=== PATIENT | female | born 1990 | race African-American/Black ===

== ENCOUNTER 2019-08-26 07:56 | Emergency (ER) | payer SELFPAY ==
[~2019-08-26] VITALS: Ht 162.6 cm; Wt 91.0 kg
[2019-08-26] MEDS ORDERED: TETANUS, DIPHTHERIA, PERTUSSIS VAC/PF 0.5ML (>7YR OLD) IM ONE (08:45)
[2019-08-26] MEDS ORDERED: LIDOCAINE HCL/PF 1% 10 MG/ML 5ML VIAL IJ ONE (08:45)
[2019-08-26] MEDS ORDERED: OXYCODONE HCL/ACETAMINOPHEN 5/325MG TABLET PO ONE (08:45)
[2019-08-26 11:05] VITALS: BP 125/79
== END 2019-08-26 11:11 | disposition home or self-care (01) ==
LOC: ER 07:56
DX: S61.412A Laceration without foreign body of left hand, initial encounter (principal); X99.1XXA Assault by knife, initial encounter; Y93.89 Activity, other specified; Y92.89 Other specified places as the place of occurrence of the external cause; Y99.8 Other external cause status
CPT/HCPCS: 12002; 73120; 90471; 90715; 99283; J3490

== ENCOUNTER 2019-08-28 03:16 | Emergency (ER) | payer SELFPAY ==
[~2019-08-28] VITALS: Ht 162.6 cm; Wt 91.0 kg
[2019-08-28] MEDS ORDERED: HYDROCODONE/ACETAMINOPHEN 5/325MG TABLET PO ONE (09:15)
[2019-08-28] MEDS ORDERED: CLINDAMYCIN HCL 150MG CAPSULE PO STA (09:15)
[2019-08-28] MEDS ORDERED: VANCOMYCIN 1 G PREMIX 200 ML IV SCH (09:30)
[2019-08-28] MEDS ORDERED: DIPHENHYDRAMINE 50MG/ML VIAL IV ONE (11:45)
[2019-08-28 11:51] VITALS: BP 130/61
[2019-08-28] MEDS ORDERED: BACITRACIN ZINC OINT UDPKT TOP ONE (12:00)
== END 2019-08-28 12:14 | disposition home or self-care (01) ==
LOC: ER 03:16
DX: L03.114 Cellulitis of left upper limb (principal); F12.10 Cannabis abuse, uncomplicated; Z98.890 Other specified postprocedural states
CPT/HCPCS: 96365; 96366; 96375; 99283; J1200; J3370; Z7610

== ENCOUNTER 2019-08-30 16:37 | Emergency (ER) | payer SELFPAY ==
[~2019-08-30] VITALS: Ht 162.6 cm; Wt 89.0 kg
[2019-08-30 16:44] VITALS: BP 100/73
== END 2019-08-30 20:54 | disposition home or self-care (01) ==
LOC: ER 16:37
DX: B37.3 Candidiasis of vulva and vagina (principal); F12.10 Cannabis abuse, uncomplicated; Z98.890 Other specified postprocedural states
CPT/HCPCS: 99281

== ENCOUNTER 2019-09-08 10:03 | Emergency (ER) | payer SELFPAY ==
[~2019-09-08] VITALS: Ht 162.6 cm; Wt 80.0 kg
[2019-09-08 10:59] VITALS: BP 130/58
== END 2019-09-08 15:51 | disposition home or self-care (01) ==
LOC: ER 10:03
DX: Z48.02 Encounter for removal of sutures (principal)
CPT/HCPCS: 99281